=== PATIENT | female | born 1980 | race Caucasian/White ===

== ENCOUNTER 2019-07-02 14:08 | Emergency (ER) | payer BC, OTHER ==
[2019-07-02] MEDS ORDERED: METHYLPREDNISOLONE INJ 125 MG/2 ML SDV IV ONE ×2 (14:19→15:30)
--- NOTE | 2019-07-02 14:24 | ER Document Report ---
ED Medical Screen (RME) - General Chief Complaint: Allergic Reaction Stated Complaint: POSSIBLE ALLERGIC REACTION Notes: Patient is a 38-year-old female who presents to the emergency department with a chief complaint of feeling like her tongue is swelling. Patient states that she was prescribed Ambien on Thursday and received #60 pills. She took all the pills between Thursday and stating that she, "wanted to sleep." She has not taken any of her Ambien since then. Exam: Patent airway. Anxious. I have greeted and performed a rapid initial assessment of this patient. A comprehensive ED assessment and evaluation of the patient, analysis of test results and completion of medical decision making process will be conducted by an additional ED providers. TRAVEL OUTSIDE OF THE [place] IN LAST 30 DAYS: No - Related Data Allergies/Adverse Reactions: No Known Allergies Allergy (Verified 07/02/19 14:09) Physical Exam - Vital signs Vitals: Temp Pulse Resp BP Pulse Ox 979 F H 113 H 24 H 152/107 H 98 07/02/19 14:11 07/02/19 14:11 07/02/19 14:11 07/02/19 14:11 07/02/19 14:11 Course - Vital Signs Vital signs: Temp Pulse Resp BP Pulse Ox 979 F H 113 H 24 H 152/107 H 98 07/02/19 14:11 07/02/19 14:11 07/02/19 14:11 07/02/19 14:11 07/02/19 14:11
--- NOTE | 2019-07-02 14:35 | ER Document Report ---
ED General - General Chief Complaint: Overdose Stated Complaint: POSSIBLE ALLERGIC REACTION Time Seen by Provider: 07/02/19 14:24 Mode of Arrival: Wheelchair Information source: Patient, Parent TRAVEL OUTSIDE OF THE [place] IN LAST 30 DAYS: No - HPI Patient complains to provider of: ruchi OD Onset: Other - pt had a Rx for Ambien (#60) and she states she took all 60 pills between last Thursday and because "she wanted to sleep." She has hx of depression/anxiety but denies SI, HI. - Related Data Allergies/Adverse Reactions: No Known Allergies Allergy (Verified 07/02/19 14:09) Past Medical History - General Information source: Patient, Parent - Social History Smoking Status: Unknown if Ever Smoked Frequency of alcohol use: None Drug Abuse: None Family History: None Patient has suicidal ideation: No Patient has homicidal ideation: No Renal/ Medical History: Denies: Hx Peritoneal Dialysis Review of Systems - Review of Systems Constitutional: No symptoms reported EENT: No symptoms reported Cardiovascular: No symptoms reported Respiratory: No symptoms reported Gastrointestinal: No symptoms reported Musculoskeletal: No symptoms reported Neurological/Psychological: See HPI, Depression -: Yes All other systems reviewed and negative Physical Exam - Vital signs Vitals: Temp Pulse Resp BP Pulse Ox 979 F H 113 H 24 H 152/107 H 98 07/02/19 14:11 07/02/19 14:11 07/02/19 14:11 07/02/19 14:11 07/02/19 14:11 - General General appearance: Appears well, Anxious In distress: None - HEENT Mouth/Lips: Normal Mucous membranes: Normal Pharynx: Normal Neck: Normal - Respiratory Respiratory status: No respiratory distress Chest status: Nontender Breath sounds: Normal - Cardiovascular Rhythm: Regular Heart sounds: Normal auscultation Murmur: No - Abdominal Inspection: Normal Tenderness: Nontender - Extremities General upper extremity: Normal inspection General lower extremity: Normal inspection - Neurological Neuro grossly intact: Yes Cognition: Normal Orientation: AAOx4 Course - Re-evaluation Re-evalutation: 07/02/19 16:02 pt with c/o tongue getting more swollen and having difficulty swallowing -- this all resolved after solumedrol, benadryl. and pepcid. She states she feels much better 07/02/19 16:45 pt has been evaluated by mental health and they feel this was not a suicide attempt. I have spoken to the patient and she feels much better and has expressed desire to go home with her mother. - Vital Signs Vital signs: Temp Pulse Resp BP Pulse Ox 979 F H 113 H 17 156/100 H 100 07/02/19 14:11 07/02/19 14:11 07/02/19 16:03 07/02/19 16:03 07/02/19 16:03 - Laboratory Result Diagrams: 07/02/19 14:25 07/02/19 14:25 Laboratory results interpreted by me: 07/02/19 07/02/19 14:25 14:25 WBC 12.1 H MCH 26.5 L RDW 23.8 H Plt Count 455 H Carbon Dioxide 21 L Glucose 115 H Salicylates 1.5 L Acetaminophen < 10 L - EKG Interpretation by Me EKG shows normal: Sinus rhythm Rate: Tachycardia Rhythm: NSR - sinus tach (rate 103) without acute change Discharge - Discharge Clinical Impression: Ambien accidental overdose Qualifiers: Encounter type: initial encounter Qualified Code(s): T42.6X1A - Poisoning by other antiepileptic and sedative-hypnotic drugs, accidental (unintentional), initial encounter Condition: Stable Disposition: HOME, SELF-CARE Additional Instructions: rest, continue current meds, return if worse Referrals: SARATH OSEI MD [ACTIVE STAFF] - Follow up as needed
[2019-07-02 14:54] LABS: HEMATOCRIT 40.2 % (36.0-47.0); MEAN CORPUSCULAR HEMOGLOBIN 26.5 pg (27.0-33.4); MEAN CORPUSCULAR HGB CONC 32.2 g/dL (32.0-36.0); MEAN CORPUSCULAR VOLUME 82 fl (80-97); PLATELET COUNT 455 10^3/uL (150-450); RED BLOOD COUNT 4.89 10^6/uL (3.72-5.28); RED CELL DISTRIBUTION WIDTH 23.8 % (11.5-14.0); WHITE BLOOD COUNT 12.1 10^3/uL (4.0-10.5)
[2019-07-02 15:01] LABS: ALBUMIN 4.5 g/dL (3.5-5.0); ALKALINE PHOSPHATASE 84 U/L (38-126); ANION GAP 13 (5-19); ASPARTATE AMINO TRANSFERASE 33 U/L (14-36); BILIRUBIN,DIRECT 0.4 mg/dL (0.0-0.4); BILIRUBIN,TOTAL 0.5 mg/dL (0.2-1.3); BLOOD UREA NITROGEN 9 mg/dL (7-20); CARBON DIOXIDE 21 mmol/L (22-30); CHLORIDE 104 mmol/L (98-107); GLUCOSE 115 mg/dL (75-110); POTASSIUM 4.5 mmol/L (3.6-5.0); SALICYLATE 1.5 mg/dL (2.0-20.0); TOTAL PROTEIN 7.8 g/dL (6.3-8.2)
[2019-07-02 15:04] LABS: ACETAMINOPHEN < 10 ug/mL (10-30); ALCOHOL < 10 mg/dL (NONE DETECTED)
[2019-07-02] MEDS ORDERED: FAMOTIDINE INJ/PF 20 MG/2 ML SDV IV ONE (15:30)
[2019-07-02] MEDS ORDERED: DIPHENHYDRAMINE HCL 50 MG/ML VIAL IV ONE (15:30)
[2019-07-02 15:38] LABS: ABSOLUTE LYMPHOCYTES# (MANUAL) 2.7 10^3/uL (0.5-4.7); ABSOLUTE MONOCYTES # (MANUAL) 0.8 10^3/uL (0.1-1.4); BASOPHILS % (MANUAL) 1 % (0-2); EOSINOPHILS % (MANUAL) 2 % (0-6); LYMPHOCYTES % (MANUAL) 22 % (13-45); MONOCYTES % (MANUAL) 7 % (3-13); SEGMENTED NEUTROPHILS % (MAN) 68 % (42-78); TOTAL CELLS COUNTED 100
[2019-07-02 15:39] LABS: ANISOCYTOSIS 3+; HYPOCHROMASIA SLIGHT; PLATELET COMMENT ADEQUATE; PLATELET LARGE PRESENT
[2019-07-02 16:21] VITALS: BP 156/100
--- NOTE | 2019-07-02 16:43 | PSYCHOLOGICAL NOTE ---
Psych Note - Psych Note Date seen by psych provider: 07/02/19 Time seen by psych provider: 16:30 Psych Note: Patient is a 38-year-old female who presents to the emergency department with a chief complaint of feeling like her tongue is swelling. Patient states that she was prescribed Ambien on Thursday and received #60 pills. She took all the pills between Thursday and stating that she, "wanted to sleep." She has not taken any of her Ambien since then. Impression/plan: patient is cleared from acute psychiatric services.
--- NOTE | 2019-07-02 18:33 | EKG REPORT ---
SEVERITY:- OTHERWISE NORMAL ECG - SINUS TACHYCARDIA : Confirmed by: Reginald Monsivais MD 02-Jul-2019 18:32:07
== END 2019-07-02 16:58 | disposition home or self-care (01) ==
LOC: ER 14:08
DX: T42.6X1A Poisoning by other antiepileptic and sedative-hypnotic drugs, accidental (unintentional), initial encounter (principal); R22.0 Localized swelling, mass and lump, head; R00.0 Tachycardia, unspecified; X58.XXXA Exposure to other specified factors, initial encounter
CPT/HCPCS: 93005; 99284; 96374; 96375; 36415; 80307 ×3; 84703; 85025; 80053; 93010; J1200; J2930; S0028

== ENCOUNTER 2020-12-13 01:58 | Emergency (ER) | payer OTHER ==
[2020-12-13 02:50] LABS: APPEARANCE,URINE HAZY; BILIRUBIN,URINE MODERATE (NEGATIVE); COLOR,URINE DARK YELLOW; GLUCOSE, URINE NEGATIVE (NEGATIVE); KETONES,URINE NEGATIVE (NEGATIVE); URINE SPECIFIC GRAVITY 1.052
[2020-12-13 02:51] LABS: ADD MANUAL MICROSCOPIC YES; LEUKOCYTE ESTERASE,URINE NEGATIVE (NEGATIVE); NITRITE,URINE NEGATIVE (NEGATIVE); PROTEIN,URINE 30 mg/dL (NEGATIVE); UROBILINOGEN,URINE NEGATIVE mg/dL (<2.0)
[2020-12-13 02:52] LABS: BACTERIA,URINE 1+ /HPF
[2020-12-13] MEDS ORDERED: ONDANSETRON 4 MG TAB.RAPDIS PO ONE (03:10)
[2020-12-13] MEDS ORDERED: MORPHINE SULFATE 10 MG/ML INJ IV ONE ×2 (04:52→06:23)
[2020-12-13] MEDS ORDERED: NORMAL SALINE 1000 ML 1,000 ML IV ONE ×2 (04:53→04:54)
[2020-12-13] MEDS ORDERED: KETOROLAC TROMETHAMINE INJ/PF 30 MG/1 ML SDV IV ONE ×2 (04:53→06:23)
--- NOTE | 2020-12-13 04:56 | ER Document Report ---
ED GI/ - General Chief Complaint: Urinary Problem Stated Complaint: FLANK PAIN Time Seen by Provider: 12/13/20 04:46 Notes: Patient is a 39-year-old female who comes to the emergency department for chief complaint of severe right flank pain that radiates around to her right side and right mid to lower abdomen. She states that the pain suddenly started this evening and caused her to vomit approximately 8 times. She denies dysuria, fever, injury, or any other locations of pain. She denies history of kidney stones but states she has had kidney infections in the past. Past medical history of hypertension, anxiety/depression, ADHD. TRAVEL OUTSIDE OF THE [place] IN LAST 30 DAYS: No - Related Data Allergies/Adverse Reactions: No Known Allergies Allergy (Verified 07/02/19 14:09) Home Medications: cymbalta. lisinopril. xanax. ambien. anxiety med. vit D. adderall. BC pills Past Medical History - General Information source: Patient - Social History Smoking Status: Never Smoker Chew tobacco use (# tins/day): No Frequency of alcohol use: None Drug Abuse: None Lives with: Family Family History: None - Past Medical History Cardiac Medical History: Reports: Hx Hypertension Renal/ Medical History: Denies: Hx Peritoneal Dialysis Psychiatric Medical History: Reports: Hx Anxiety, Hx Attention Deficit Hyperactivity Disorder, Hx Depression Past Surgical History: Reports: Hx Gynecologic Surgery - Immunizations Hx Diphtheria, Pertussis, Tetanus Vaccination: Yes Review of Systems - Review of Systems Constitutional: No symptoms reported EENT: No symptoms reported Cardiovascular: No symptoms reported Respiratory: No symptoms reported Gastrointestinal: See HPI Genitourinary: See HPI Female Genitourinary: No symptoms reported Musculoskeletal: No symptoms reported Skin: No symptoms reported Hematologic/Lymphatic: No symptoms reported Neurological/Psychological: No symptoms reported Physical Exam - Vital signs Vitals: Temp Pulse Resp BP Pulse Ox 97.4 F 110 H 18 146/82 H 100 12/13/20 02:05 12/13/20 02:05 12/13/20 02:05 12/13/20 02:05 12/13/20 02:05 - Notes Notes: GENERAL: Patient appears to be in pain, having difficulty holding still, however she is alert and cooperative HEAD: Normocephalic, atraumatic. EYES: Pupils equal, round, and reactive to light. Extraocular movements intact. ENT: Oral mucosa dry, tongue midline. Oropharynx unremarkable. Airway patent. NECK: Full range of motion. Supple. Trachea midline. No lymphadenopathy. LUNGS: Clear to auscultation bilaterally, no wheezes, rales, or rhonchi. No respiratory distress. Non-tender chest wall. HEART: Borderline tachycardic, normal rhythm, no murmur ABDOMEN: There is some generalized tenderness over the right mid to lower abdomen, nonspecific, no guarding. EXTREMITIES: Moves all 4 extremities spontaneously. No edema, normal radial and dorsalis pedis pulses bilaterally. No cyanosis. BACK: Right-sided CVA tenderness. No cervical, thoracic, lumbar midline tenderness. No saddle anesthesia, normal distal neurovascular exam. Moves all extremities in full range of motion. NEUROLOGICAL: Alert and oriented x3. Normal speech. Cranial nerves II through XII grossly intact. Strength 5/5 in all extremities. PSYCH: Somewhat agitated SKIN: Warm, dry, normal turgor. No rashes or lesions noted. Course - Re-evaluation Re-evalutation: Patient much more comfortable on reevaluation. Presentation consistent with passing ureterolithiasis. CAT scan performed because she has never had this before and she has severe pain. CBC shows some leukocytosis, initially she was tachycardic, chemistry unremarkable. Urinalysis shows borderline bacteria and white blood cells with some blood mainly. No overt infection. Culture placed. She will be prophylactically treated after we discussed this. CT does show passing mildly obstructing 2 mm right-sided ureterolithiasis. No concerning findings otherwise. Patient was remedicated as her medications started wearing off and she was much more comfortable after this. I discussed expectations, follow-up, and return precautions at length. Patient and mother state appreciation and agreement. Stable and well-appearing at time of discharge. - Vital Signs Vital signs: Temp Pulse Resp BP Pulse Ox 97.4 F 110 H 18 146/82 H 100 12/13/20 02:05 12/13/20 02:05 12/13/20 02:05 12/13/20 02:05 12/13/20 02:05 - Laboratory Results Result Diagrams: 12/13/20 05:17 12/13/20 05:17 Laboratory Results Interpreted: 12/13/20 12/13/20 12/13/20 02:15 05:17 05:17 WBC 13.3 H RBC 3.69 L Hgb 11.7 L Hct 35.1 L RDW 15.1 H Plt Count 505 H Absolute Neuts (auto) 10.3 H Sodium 133.8 L Est GFR (MDRD) Non-Af 55 L Glucose 136 H AST 53 H ALT 36 H Urine Protein 30 H Urine Blood SMALL H Urine Bilirubin MODERATE H Critical Laboratory Results Reviewed: No Critical Results - Radiology Results Critical Radiology Results Reviewed: No Critical Results Discharge - Discharge Clinical Impression: Ureterolithiasis, Right flank pain Abdominal pain Qualifiers: Abdominal location: lower abdomen, unspecified Qualified Code(s): R10.30 - Lower abdominal pain, unspecified Vomiting Qualifiers: Vomiting type: unspecified Vomiting Intractability: non-intractable Nausea presence: with nausea Qualified Code(s): R11.2 - Nausea with vomiting, unspecified Condition: Stable Disposition: HOME, SELF-CARE Additional Instructions: You are passing a 2 mm kidney stone on the right side. This should pass over the next few days. Drink plenty of fluids, you can take the Percocet if needed for severe pain, Toradol and Zofran otherwise. I also recommend that you take the Keflex antibiotic to prevent infection. See urology referral listed below. Return if you worsen including severe worsening pain, uncontrolled vomiting, developing fever, or any other concerning or worsening symptoms. Prescriptions: Ketorolac Tromethamine [Toradol 10 mg Tablet] 10 mg PO Q8HP PRN #24 tablet PRN Reason: Cephalexin Monohydrate [Keflex 500 mg Capsule] 500 mg PO TID 5 Days #15 capsule Oxycodone HCl/Acetaminophen [Percocet 5-325 mg Tablet] 1 - 2 tab PO TID PRN #15 tab PRN Reason: Ondansetron [Zofran Odt 4 mg Tablet] 1 - 2 tab PO Q4H PRN #20 tab.rapdis PRN Reason: For Nausea/Vomiting Forms: Return to Work
[2020-12-13 05:40] LABS: ABSOLUTE BASOPHILS # (AUTO) 0.1 10^3/uL (0.0-0.2); ABSOLUTE EOSINOPHILS # (AUTO) 0.4 10^3/uL (0.0-0.6); ABSOLUTE LYMPHOCYTES (AUTO) 1.9 10^3/uL (0.5-4.7); ABSOLUTE MONOCYTES (AUTO) 0.6 10^3/uL (0.1-1.4); ABSOLUTE NEUT (AUTO) 10.3 10^3/uL (1.7-8.2); BASOPHILS % (AUTO) 0.8 % (0-2); EOSINOPHILS % (AUTO) 2.7 % (0-6); HEMATOCRIT 35.1 % (36.0-47.0); HEMOGLOBIN 11.7 g/dL (12.0-15.5); LYMPHOCYTES % (AUTO) 14.2 % (13-45); MEAN CORPUSCULAR HEMOGLOBIN 31.8 pg (27.0-33.4); MEAN CORPUSCULAR HGB CONC 33.4 g/dL (32.0-36.0); MEAN CORPUSCULAR VOLUME 95 fl (80-97); MONOCYTES % (AUTO) 4.8 % (3-13); PLATELET COUNT 505 10^3/uL (150-450); RED BLOOD COUNT 3.69 10^6/uL (3.72-5.28); RED CELL DISTRIBUTION WIDTH 15.1 % (11.5-14.0); SEGMENTED NEUTROPHILS % (AUTO) 77.5 % (42-78); TOTAL CELLS COUNTED % (AUTO) 100 %; WHITE BLOOD COUNT 13.3 10^3/uL (4.0-10.5)
[2020-12-13 05:54] LABS: ALBUMIN 4.1 g/dL (3.5-5.0); ALKALINE PHOSPHATASE 49 U/L (38-126); ANION GAP 7 (5-19); ASPARTATE AMINO TRANSFERASE 53 U/L (14-36); BILIRUBIN,DIRECT 0.2 mg/dL (0.0-0.4); BILIRUBIN,TOTAL 0.4 mg/dL (0.2-1.3); BLOOD UREA NITROGEN 15 mg/dL (7-20); CALCIUM 9.7 mg/dL (8.4-10.2); CARBON DIOXIDE 27 mmol/L (22-30); CHLORIDE 100 mmol/L (98-107); GLUCOSE 136 mg/dL (75-110); POTASSIUM 4.5 mmol/L (3.6-5.0); TOTAL PROTEIN 7.1 g/dL (6.3-8.2)
[2020-12-13] MEDS ORDERED: DIPHENHYDRAMINE HCL 50 MG/ML VIAL IV ONE (06:23)
--- NOTE | 2020-12-13 06:42 | RADIOLOGY REPORT (SQ) ---
CLINICAL HISTORY: right flank pain, vomiting. HCG NEG COMPARISON: None. TECHNIQUE: CT ABDOMEN PELVIS WITHOUT IV CONTRAST on 12/13/2020 4:54 AM [employer] This exam was performed according to our departmental dose-optimization program, which includes automated exposure control, adjustment of the mA and/or kV according to patient size and/or use of iterative reconstruction technique. FINDINGS: Lower lungs are clear. Abdomen: The liver is normal in appearance. There is no biliary dilatation. Gallbladder is normally distended. The pancreas and spleen are normal in appearance. Adrenal glands and left kidney are normal. Right kidney is mildly hydronephrotic secondary to a 2 mm right distal ureteral calculus. Abdominal aorta is normal in course and caliber without aneurysm. There is no free air. There is no retroperitoneal adenopathy. Pelvis: There is no bowel obstruction. Urinary bladder is unremarkable. There is no free fluid. Uterus is normal in size. Appendix is normal. Skeleton: There are no acute osseous findings. No suspicious bony lesions. IMPRESSION: Mildly obstructing distal right ureteral calculus.
[2020-12-13] MEDS ORDERED: HYDROCODONE/ACETAMINOPHEN 5-325 MG (6 TAB/ER DISP) PO PRN (06:57)
[2020-12-13] MEDS ORDERED: ONDANSETRON ODT 4 MG TAB (6 TAB/ER DISP) PO PRN (06:58)
[2020-12-13 07:42] VITALS: BP 140/90
== END 2020-12-13 07:41 | disposition home or self-care (01) ==
LOC: ER 01:58
DX: N20.1 Calculus of ureter (principal); R10.30 Lower abdominal pain, unspecified; R10.9 Unspecified abdominal pain; R11.2 Nausea with vomiting, unspecified; I10 Essential (primary) hypertension; R41.9 Unspecified symptoms and signs involving cognitive functions and awareness; F32.9 Major depressive disorder, single episode, unspecified; F90.9 Attention-deficit hyperactivity disorder, unspecified type; Z79.899 Other long term (current) drug therapy
CPT/HCPCS: 36415; 87086; 85025; 81025; 87088; 80053; 81001; 87186; 74176; J1200; S0119; J1885; J2270; J7030